=== PATIENT | female | born 1985 | race Hispanic/Latino ===

== ENCOUNTER 2023-01-24 11:08 | Emergency (ER) | payer OTHER ==
[2023-01-24] VITALS (24 sets, daily range): BP systolic 67–116; BP diastolic 26–63
[~2023-01-24] VITALS: Ht 152.4 cm; Wt 60.0 kg
[2023-01-24 12:09] LABS: BASO% 0.2 % (0-3); EOS% 4.5 % (0-8); HEMATOCRIT 34.9 % (37.0-47.0); HEMOGLOBIN 11.6 g/dl (12.0-16.0); IMMATURE GRANULOCYTES 0.6 % (0.0-5.0); LYMPH% 34.7 % (15-41); MEAN CELL VOLUME 91.4 fL CALC (80.0-100.0); MEAN CORPUSCULAR HGB 30.4 pG CALC (26.0-32.0); MEAN CORPUSCULAR HGB CONC 33.2 g/dL CAL (32.0-36.0); MONO% 5.5 % (2-13); NEUT# 4.7 thou/uL (2.00-7.15); NEUT% 54.5 % (42-76); RED BLOOD COUNT 3.82 mill/uL (4.20-5.60); RED CELL DISTRI WIDTH 11.8 % (11.5-15.5)
[2023-01-24 12:18] LABS: ALBUMIN 3.6 g/dL (3.2-5.0); ALKALINE PHOSPHATASE 42 u/l (38-126); ANION GAP 9 (6-22 (CALC)); BUN 10 mg/dL (7-17); BUN/CREATININE RATIO 18 (12-20 (CALC)); CARBON DIOXIDE 23 mmol/l (22-30); CHLORIDE 105 mmol/l (95-108); CREATININE 0.6 mg/dL (0.5-1.0); GFR FOR AFR.AMER. > 60 ML/MIN (>=60 (CALC)); GFR OTHER RACES > 60 ML/MIN (>=60 (CALC)); POTASSIUM 3.5 mmol/l (3.5-5.1); SGOT/AST 21 u/l (14-36); SODIUM 133 mmol/l (137-146); TOTAL PROTEIN 6.3 g/dL (6.3-8.2)
[2023-01-24 13:01] LABS: BETA-HCG, QUANT(RESULT NUMBER) 28676 mIU/mL
[2023-01-24 13:47] LABS: URINE BILIRUBIN - DIPSTICK NEGATIVE (NEGATIVE); URINE BLOOD DIPSTICK TRACE-INTACT (NEGATIVE); URINE COLOR YELLOW; URINE GLUCOSE - DIPSTICK NEGATIVE (NEGATIVE); URINE KETONE NEGATIVE (NEGATIVE); URINE LEUK ESTERASE NEGATIVE (NEGATIVE); URINE PROTEIN - DIPSTICK NEGATIVE (NEG-TRACE); URINE UROBILINOGEN - DIPSTICK 0.2 E.U./dL (0.2)
[2023-01-24 13:50] LABS: URINE NITRITE - DIPSTICK NEGATIVE (Negative)
== END 2023-01-24 17:50 | disposition home or self-care (01) | DRG 833 ==
LOC: ED 11:08
PROVIDERS: Nurse Practitioner
DX: O20.0 Threatened abortion (principal); O26.51 Maternal hypotension syndrome, first trimester; Z3A.01 Less than 8 weeks gestation of pregnancy

== ENCOUNTER 2023-02-01 16:27 | Emergency (ER) | payer OTHER ==
[2023-02-01] VITALS (11 sets, daily range): BP systolic 88–128; BP diastolic 46–97
[~2023-02-01] VITALS: Ht 152.4 cm; Wt 60.0 kg
[2023-02-01 16:55] LABS: BASO% 0.2 % (0-3); EOS% 3.6 % (0-8); HEMOGLOBIN 12.6 g/dl (12.0-16.0); IMMATURE GRANULOCYTES 0.6 % (0.0-5.0); LYMPH% 32.5 % (15-41); MEAN CORPUSCULAR HGB 30.7 pG CALC (26.0-32.0); MEAN CORPUSCULAR HGB CONC 34.1 g/dL CAL (32.0-36.0); MONO% 6.8 % (2-13); NEUT# 5.85 thou/uL (2.00-7.15); NEUT% 56.3 % (42-76); RED BLOOD COUNT 4.11 mill/uL (4.20-5.60)
[2023-02-01 17:10] LABS: ALBUMIN 4.5 g/dL (3.2-5.0); ALKALINE PHOSPHATASE 51 u/l (38-126); ANION GAP 14 (6-22 (CALC)); BILIRUBIN, TOTAL 0.3 mg/dL (0.02-1.3); BUN 8 mg/dL (7-17); BUN/CREATININE RATIO 13 (12-20 (CALC)); CARBON DIOXIDE 21 mmol/l (22-30); CHLORIDE 103 mmol/l (95-108); CREATININE 0.6 mg/dL (0.5-1.0); GFR FOR AFR.AMER. > 60 ML/MIN (>=60 (CALC)); GFR OTHER RACES > 60 ML/MIN (>=60 (CALC)); POTASSIUM 3.5 mmol/l (3.5-5.1); SGOT/AST 25 u/l (14-36); SODIUM 134 mmol/l (137-146); TOTAL PROTEIN 7.7 g/dL (6.3-8.2)
[2023-02-01 17:30] LABS: BETA-HCG, QUANT(RESULT NUMBER) 96432 mIU/mL
== END 2023-02-01 19:45 | disposition left against medical advice (07) | DRG 833 ==
LOC: ED 16:27
PROVIDERS: Nurse Practitioner
DX: O20.0 Threatened abortion (principal); O34.81 Maternal care for other abnormalities of pelvic organs, first trimester; N83.292 Other ovarian cyst, left side; Z3A.00 Weeks of gestation of pregnancy not specified; Z53.29 Procedure and treatment not carried out because of patient's decision for other reasons